=== PATIENT | female | born 2000 | race Caucasian/White ===

== ENCOUNTER 2021-02-07 11:23 | Outpatient (CLI) | payer OTHER ==
--- NOTE | 2021-02-07 17:08 | XRAY Report ---
PROCEDURE: Knee 4 View LT INDICATIONS: LEFT KNEE PAIN TECHNIQUE: 4 views of the left knee(s) were acquired. COMPARISON: None. FINDINGS: Bones: Surgical changes compatible prior left ACL repair. No fractures or dislocations. No suspicio us bony lesions. Soft tissues: No joint effusion. No suspicious soft tissue calcifications. IMPRESSION: 1. Status post left ACL repair. 2. No acute osseous lesion. If there persistent symptoms or continued clinical concern for pathology, then repeat plain film radiographs (7-10 days) or advanced imaging (CT, MR, bone scan) should be con sidered for further evaluation. Reviewed by: Maria M Pang MD, PhD on 02/07/2021 5:07 PM PDT Approved by: Maria M Pang MD, PhD on 02/07/2021 5:07 PM PDT Station ID: [id number]
== END 2021-02-07 11:24 | disposition home or self-care (01) ==
LOC: DI.N 11:23
PROVIDERS: ATTEND Physician Assistant
DX: M25.562 Pain in left knee (principal); Z98.890 Other specified postprocedural states

== ENCOUNTER 2021-10-28 12:39 | Outpatient (CLI) | payer OTHER ==
--- NOTE | 2021-10-28 14:45 | MRI Report ---
PROCEDURE: Knee LT W/O INDICATIONS: KNEE PAIN TECHNIQUE: Noncontrast sagittal PD fast spin echo and T2 fast spin echo with fat saturation, sagittal 3-D gradie nt sequence with fat saturation; coronal T1 spin echo and PD fast spin echo with fat saturation, and axial PD fast spin echo with fat saturation through the knee. COMPARISON: None. FINDINGS: Image quality: Excellent. Menisci: There is vertically oriented high T2 signal intensity vertically traversing the posterior ho rn medial meniscus involving the peripheral third, and demonstrates superior and inferior articular s urface extension, indicating radial tearing. Lateral extrusion of the lateral meniscus. Linear obliqu e high T2 signal intensity within the posterior horn lateral meniscus involving the inner, middle, an d peripheral thirds, demonstrating inferior articular surface extension, indicating oblique tearing. Truncation of the free edge of the posterior horn lateral meniscus is present. Cruciate ligaments: The anterior cruciate ligament graft and posterior cruciate ligaments appear int act. Medial structures: The medial collateral ligament appears intact. Visualized portions of the pes ans erinus tendons appear normal. No abnormal bursal fluid. Lateral structures: The lateral collateral ligament, long and short heads of the biceps femoris tend on appear intact. The popliteus tendon appears normal. Iliotibial band appears normal. Anterior structures: The quadriceps and patellar tendons appear intact. Patellar alignment is clay l. No femoral trochlear dysplasia or ventral trochlear prominence. No edema in the infrapatellar fa t pad. Bones and cartilage: No bone marrow contusions or fractures. The cartilage of the medial and latera l femorotibial compartments, as well as the patellofemoral compartment, appears normal in thickness. Joint space: There is physiologic knee joint fluid. No Ingram's cyst. Normal appearing synovial pli are incidentally noted. IMPRESSION: 1. Intact ACL graft. 2. Medial and lateral meniscal tearing. Reviewed by: Gerald Victor MD on 10/28/2021 1:44 PM KATHRINE Approved by: Gerald Victor MD on 10/28/2021 1:44 PM KATHRINE Station ID: [id number]
== END 2021-10-28 12:40 | disposition home or self-care (01) ==
LOC: DI 12:39
PROVIDERS: ATTEND Student in an Organized Health Care Education/Training Program
DX: S83.242A Other tear of medial meniscus, current injury, left knee, initial encounter (principal); S83.282A Other tear of lateral meniscus, current injury, left knee, initial encounter

== ENCOUNTER 2022-02-27 14:08 | Emergency (ER) | payer OTHER ==
[2022-02-27 14:36] LABS: BASOPHILS # (AUTO) 0.1 10^3/uL (0.0-0.1); BASOPHILS % (AUTO) 1.1 %; EOSINOPHILS # (AUTO) 0.2 10^3/uL (0.0-0.7); EOSINOPHILS % (AUTO) 1.5 %; HCT - HEMATOCRIT 41.8 % (37.0-47.0); LYMPHOCYTES # (AUTO) 3.2 10^3/uL (1.5-3.5); LYMPHOCYTES % (AUTO) 29.7 %; MEAN CORPUSCULAR HGB CONC 33.5 g/dL (32.0-36.0); MEAN CORPUSCULAR VOLUME 95.7 fL (81.0-99.0); MEAN PLATELET VOLUME 8.7 fL (7.9-10.8); MONOCYTES # (AUTO) 0.6 10^3/uL (0.0-1.0); MONOCYTES % (AUTO) 5.8 %; NEUTROPHILS # (AUTO) 6.7 10^3/uL (1.5-6.6); NEUTROPHILS % (AUTO) 61.6 %; PLT - PLATELET COUNT 405 10^3/uL (130-450); RED BLOOD COUNT 4.37 10^6/uL (4.20-5.40); RED CELL DISTRIBUTION WIDTH 12.3 % (12.0-15.0); WHITE BLOOD COUNT 10.8 x10^3/uL (4.8-10.8)
[2022-02-27 14:55] LABS: ALBUMIN 4.2 g/dL (3.2-5.5); ALBUMIN/GLOBULIN RATIO 1.2 (1.0-2.2); BILIRUBIN,TOTAL 0.9 mg/dL (0.2-1.0); CALCIUM 9.7 mg/dL (8.5-10.3); POTASSIUM 4.2 mmol/L (3.5-5.0); TOTAL PROTEIN 7.8 g/dL (6.7-8.2)
[2022-02-27 15:06] LABS: BILIRUBIN,URINE NEGATIVE (NEGATIVE); GLUCOSE, URINE (UA) NEGATIVE (NEGATIVE); KETONES,URINE (UA) NEGATIVE (NEGATIVE); LEUKOCYTE ESTERASE, URINE NEGATIVE (NEGATIVE); NITRITE,URINE NEGATIVE (NEGATIVE); OCCULT BLOOD,URINE NEGATIVE (NEGATIVE); PH,URINE 6.5 PH (5.0-7.5); PROTEIN,URINE NEGATIVE (NEGATIVE); UROBILINOGEN,URINE 0.2 (NORMAL) E.U./dL (NORMAL)
[2022-02-27 15:11] LABS: CLARITY,URINE CLEAR (CLEAR)
[2022-02-27] MEDS ORDERED: MAG HYDROX/AL HYDROX/SIMETH 30 ML UDC PO STA (15:22)
[2022-02-27] MEDS ORDERED: LIDOCAINE VISCOUS 2% 15 ML UDC MM STA (15:22)
[2022-02-27] MEDS ORDERED: FAMOTIDINE 20 MG TABLET PO STA (15:22)
[2022-02-27] MEDS ORDERED: SUCRALFATE 1 GM/10 ML UDC PO STA (15:22)
--- NOTE | 2022-02-27 15:29 | ED Physician Documentation ---
History of Present Illness - Stated complaint Stated Complaint: N/V/D - Chief complaint Chief Complaint: Abd Pain - History obtained from History obtained from: Patient - History of Present Illness Pain level max: 5 Pain level now: 3 - Additonal information Additional information: Patient is a 21-year-old female who presents to the emergency department stating that she has had intermittent nausea and bloating after she eats for the past 3 months. Worse with eating and drinking, nothing makes it better. Today she had nausea and vomiting. She states most of the pain is epigastric. She has also had intermittent diarrhea and constipation. Patient states that she does not drink alcohol. Does not use NSAIDs. She states that she does drink a large amount of caffeine but has cut back on this recently. Review of Systems Constitutional: denies: Fever, Chills Respiratory: denies: Cough Skin: denies: Rash Musculoskeletal: denies: Neck pain, Back pain Neurologic: denies: Headache PD PAST MEDICAL HISTORY - Past Medical History Past Medical History: No - Past Surgical History Past Surgical History: No - Present Medications Home Medications: Ambulatory Orders Medication Instructions Recorded Confirmed Esomeprazole Magnesium [Nexium] 40 mg PO DAILY #30 cap 02/27/22 Famotidine [Pepcid] 20 mg PO BID #60 tablet 02/27/22 Sucralfate [Carafate] 1 gm PO ACHS #60 tablet 02/27/22 - Allergies Allergies/Adverse Reactions: Allergies Allergy/AdvReac Type Severity Reaction Status Date / Time No Known Drug Allergies Allergy Verified 02/27/22 14:24 - Social History Does the pt smoke?: No Smoking Status: Never smoker Does the pt have substance abuse?: No - Immunizations Immunizations are current?: Yes - POLST Patient has POLST: No PD ED PE NORMAL - Vitals Vital signs reviewed: Yes - General General: Alert and oriented X 3, No acute distress, Well developed/nourished - HEENT HEENT: Moist mucous membranes - Neck Neck: Supple, no meningeal sign - Cardiac Cardiac: RRR - Respiratory Respiratory: No respiratory distress, Clear bilaterally - Abdomen Abdomen: Soft, Non distended, Other (Tender palpation epigastric without peritoneal signs. Negative Tenorio sign) - Back Back: No CVA TTP, No spinal TTP - Derm Derm: Warm and dry - Extremities Extremities: No edema - Neuro Neuro: Alert and oriented X 3 - Psych Psych: Normal mood, Normal affect Results - Vitals Vitals: Vital Signs - 24 hr 02/27/22 16:17 Heart Rate 76 Respiratory 18 Rate Blood Pressure 132/93 H O2 Saturation 100 Oxygen O2 Source Room air - Labs Labs: Laboratory Tests 02/27/22 02/27/22 02/27/22 14:20 14:31 14:31 WBC 10.8 RBC 4.37 Hgb 14.0 Hct 41.8 MCV 95.7 MCH 32.0 H MCHC 33.5 RDW 12.3 Plt Count 405 MPV 8.7 Neut # (Auto) 6.7 H Lymph # (Auto) 3.2 Cochran # (Auto) 0.6 Eos # (Auto) 0.2 Baso # (Auto) 0.1 Absolute Nucleated RBC 0.00 Nucleated RBC % 0.0 Sodium 138 Potassium 4.2 Chloride 103 Carbon Dioxide 27 Anion Gap 8.0 BUN 22 H Creatinine 1.0 Estimated GFR (MDRD) 69 L Glucose 95 Calcium 9.7 Total Bilirubin 0.9 AST 25 ALT 21 Alkaline Phosphatase 31 L Total Protein 7.8 Albumin 4.2 Globulin 3.6 Albumin/Globulin Ratio 1.2 Lipase 45 Urine Color STRAW Urine Clarity CLEAR Urine pH 6.5 Ur Specific [place] <=1.005 Urine Protein NEGATIVE Urine Glucose (UA) NEGATIVE Urine Ketones NEGATIVE Urine Occult Blood NEGATIVE Urine Nitrite NEGATIVE Urine Bilirubin NEGATIVE Urine Urobilinogen 0.2 (NORMAL) Ur Leukocyte Esterase NEGATIVE Ur Microscopic Review NOT INDICATED Urine Culture Comments NOT INDICATED PD MEDICAL DECISION MAKING - ED course Complexity details: reviewed results, re-evaluated patient, considered differential, d/w patient ED course: 21-year-old female, well-appearing, nontoxic with epigastric abdominal pain, especially after eating. She feels much better after GI cocktail. Possible gastritis versus ulcer. No significant lab abnormalities. Recommend that she follow-up with her doctor for referral for an endoscopy. Eosinophilic esophagitis, H. pylori review, etc. would also be in the differential diagnosis. We will trial the patient on medication for her stomach, PPI/H2 albert and have her follow-up with her doctor. Patient counseled regarding signs and symptoms for which I believe and urgent re-evaluation would be necessary. Patient with good understanding of and agreement to plan and is comfortable going home at this time This document was made in part using voice recognition software. While efforts are made to proofread this document, sound alike and grammatical errors may occur. Departure - Departure Disposition: 01 Home, Self Care Clinical Impression: Gastritis Qualifiers: Gastritis type: unspecified gastritis Chronicity: acute Gastritis bleeding: without bleeding Qualified Code(s): K29.00 - Acute gastritis without bleeding Abdominal pain Qualifiers: Abdominal location: epigastric Qualified Code(s): R10.13 - Epigastric pain Condition: Good Instructions: ED PUD Vs Gastritis Follow-Up: CHUCHO WYLIE MD [Primary Care Provider] - Within 1 week Prescriptions: Sucralfate [Carafate] 1 gm PO ACHS #60 tablet Esomeprazole Magnesium [Nexium] 40 mg PO DAILY #30 cap Famotidine [Pepcid] 20 mg PO BID #60 tablet Comments: Please follow-up with your doctor for further care. Return if you worsen. It is recommended that you have an endoscopy. Your doctor can refer you for this. Your prescriptions were sent to [facility]. Discharge Date/Time: 02/27/22 16:17
[2022-02-27 16:18] VITALS: BP 132/93
== END 2022-02-27 16:17 | disposition home or self-care (01) ==
LOC: ED 14:08
DX: K29.00 Acute gastritis without bleeding (principal); R10.13 Epigastric pain
CPT/HCPCS: 36415; 80053; 81003; 83690; 85025; 99283; 99284; A9270; 81001; 87086